=== PATIENT | female | born 1990 | race Caucasian/White ===

== ENCOUNTER → 2016-12-05 | Outpatient (CLI) | payer OTHER ==
--- NOTE | 2016-12-05 17:24 | REP ---
LEFT FOOT, FOUR VIEWS: There is no evidence of an acute fracture, dislocation or intrinsic bone disease. IMPRESSION: No fracture or dislocation. Unreviewed
== END ==
LOC: M LRY 16:24
PROVIDERS: ATTEND Nurse Practitioner Family
DX: M79.672 Pain in left foot (principal)
CPT/HCPCS: 73630; G0463